=== PATIENT | female | born 1975 | race Hispanic/Latino ===

== ENCOUNTER 2020-09-19 07:30 | Emergency (ER) | payer OTHER ==
[2020-09-19] MEDS ORDERED: ONDANSETRON ODT 4MG TAB ONE (08:06)
[2020-09-19 08:11] LABS: APPEARANCE,URINE Cloudy (CLEAR); BILIRUBIN,URINE Small (NEGATIVE); COLOR,URINE Dark Yellow (YELLOW); GLUCOSE, URINE (UA) Negative (NEGATIVE); KETONES,URINE >=80 mg/dL (NEGATIVE); LEUKOCYTE ESTERASE ,URINE Small (NEGATIVE); NITRATE,URINE Positive (NEGATIVE); OCCULT BLOOD,URINE Small (NEGATIVE); PROTEIN,URINE 300 mg/dL (NEGATIVE)
[2020-09-19 08:22] LABS: HCG,QUAL RESULT NEGATIVE (NEGATIVE)
[2020-09-19] MEDS ORDERED: ONDANSETRON 4MG INJ ONE (08:24)
[2020-09-19] MEDS ORDERED: KETOROLAC 30MG VIAL (30MG/ML) ONE (08:24)
[2020-09-19] MEDS ORDERED: MORPHINE 4 MG SYG ONE (08:25)
[2020-09-19 08:27] LABS: BASOPHILS % (AUTO) 0.6 % (0.0-5.0); EOSINOPHILS % (AUTO) 0.2 % (0.0-8.0); HEMATOCRIT 38.2 % (36-48); LYMPHOCYTES % (AUTO) 8.6 % (21.0-51.0); MEAN CORPUSCULAR HEMOGLOBIN 28.8 pg (27.0-33.0); MEAN CORPUSCULAR HGB CONC 34.3 g/dL (32.0-36.0); MONOCYTES % (AUTO) 5.4 % (3.0-13.0); NEUTROPHILS % (AUTO) 84.9 % (40.0-77.0); PLATELET COUNT (AUTO) 260 K/uL (130-400); RED BLOOD CELL COUNT(AUTO) 4.55 MIL/uL (4.00-5.50); RED CELL DISTRIBUTION WIDTH 14.5 % (11.0-15.5); WHITE BLOOD COUNT (AUTO) 6.5 K/uL (4.8-10.8)
[2020-09-19] MEDS ORDERED: 0.9%NACL 1000ML 1,000 ML IV ONE (08:27)
[2020-09-19 08:39] LABS: CREATININE 0.8 mg/dL (0.5-1.5); POTASSIUM 3.4 mmol/L (3.5-5.1)
[2020-09-19 08:44] LABS: RBC,URINE 0-1 /HPF (0-1)
[2020-09-19 08:44] LABS: ALBUMIN 3.5 g/dL (3.5-5.0); BILIRUBIN,TOTAL 0.6 mg/dL (0.2-1.0); TOTAL PROTEIN, SERUM 8.3 g/dL (6.0-8.3)
[2020-09-19 08:45] LABS: BACTERIA,URINE Many /HPF (None Seen)
[2020-09-19] MEDS ORDERED: 0.9%NACL 50ML 50 ML IV ONE (10:35)
[2020-09-19] MEDS ORDERED: CEFTRIAXONE 1G VIAL ONE (10:35)
== END 2020-09-19 11:33 | disposition home or self-care (01) ==
LOC: EDH 07:30
DX: N10 Acute pyelonephritis (principal); N30.00 Acute cystitis without hematuria; L93.0 Discoid lupus erythematosus; M79.7 Fibromyalgia; G43.909 Migraine, unspecified, not intractable, without status migrainosus; Z90.49 Acquired absence of other specified parts of digestive tract; Z90.710 Acquired absence of both cervix and uterus; Z88.1 Allergy status to other antibiotic agents
CPT/HCPCS: 36415; 80053; 81001; 81025; 85025; 87077; 87088; 87186; 96361; 96365; 96375; 99284; J0696; J1885; J2270; J2405; J7030